=== PATIENT | female | born 1950 | race Caucasian/White ===

== ENCOUNTER 2023-07-29 06:05 | Inpatient (IN) ==
--- NOTE | 2023-05-20 11:35 | PAT Medication Instructions ---
Medication Instructions Date of Service May 20, 2023 Home Medications albuterol sulfate 90 mcg/actuation aerosol inhaler 2 puff inhalation BID PRN sob amlodipine 5 mg tablet 5 mg PO QAM atorvastatin 40 mg tablet 40 mg PO QAM cholecalciferol (vitamin D3) 50 mcg (2,000 unit) tablet (Vitamin D3) 50 mcg PO QAM cyanocobalamin (vitamin B-12) 1,000 mcg tablet (Vitamin B-12) 1,000 mcg PO Q OTHER DAY duloxetine 60 mg capsule,delayed release sprinkle 60 mg PO QAM ferrous sulfate 325 mg (65 mg iron) tablet,delayed release 325 mg PO QAM fluticasone propionate 50 mcg/actuation nasal spray,suspension 1 spray intranasal QAM hydrocodone 5 mg-acetaminophen 325 mg tablet 1 tab PO Q4H PRN Pain ibuprofen 600 mg tablet 600 mg PO Q6H PRN Pain levothyroxine 112 mcg tablet (Synthroid) 112 mcg PO UD magnesium 200 mg tablet 400 mg PO QAM metformin 500 mg tablet 500 mg PO BID Continue as directed levothyroxine 112 mcg tablet (Synthroid) 112 mcg PO UD ASK your surgeon for instructions ibuprofen 600 mg tablet 600 mg PO Q6H PRN Pain DO NOT take the morning of surgery cholecalciferol (vitamin D3) 50 mcg (2,000 unit) tablet (Vitamin D3) 50 mcg PO QAM cyanocobalamin (vitamin B-12) 1,000 mcg tablet (Vitamin B-12) 1,000 mcg PO Q OTHER DAY ferrous sulfate 325 mg (65 mg iron) tablet,delayed release 325 mg PO QAM magnesium 200 mg tablet 400 mg PO QAM metformin 500 mg tablet 500 mg PO BID Take morning of surgery With a small sip of water, OTHERWISE NOTHING TO EAT OR DRINK AFTER MIDNIGHT: albuterol sulfate 90 mcg/actuation aerosol inhaler 2 puff inhalation BID PRN sob (use if needed; please bring with you to hospital day of surgery if possible) amlodipine 5 mg tablet 5 mg PO QAM atorvastatin 40 mg tablet 40 mg PO QAM duloxetine 60 mg capsule,delayed release sprinkle 60 mg PO QAM fluticasone propionate 50 mcg/actuation nasal spray,suspension 1 spray intranasal QAM hydrocodone 5 mg-acetaminophen 325 mg tablet 1 tab PO Q4H PRN Pain (if needed) Take evening before surgery albuterol sulfate 90 mcg/actuation aerosol inhaler 2 puff inhalation BID PRN sob (if needed) hydrocodone 5 mg-acetaminophen 325 mg tablet 1 tab PO Q4H PRN Pain (if needed) metformin 500 mg tablet 500 mg PO BID Other Notes If you have any questions please call us at [phone] or [phone] or [phone] or [phone]
--- NOTE | 2023-05-26 12:29 | Anesthesiology Consultation ---
Date of Service May 26, 2023 Assessment & Plan (1) Encounter for pre-operative examination: - left chest discomfort radiating to left arm and back ongoing since 02/2023 attributed to neck by Dr. Hoffmann per patient. Denies change or worsening-states it is similar to right sided symptoms from neck pain which improved with steroid injections. - upcoming Dr. Mcdermott and PCP pre-operative evaluations ordered by surgeon. Optimization form and PAT testing to be faxed to cardiology. Chart Review Chart Review: Pending: Refer to Additional Notes / Consult section and Patient seen in Pre Admission Testing Teaching & Discussion Pre-Anesthesia Teaching/Discussion Notes: Instructed NPO after midnight before surgery, except medications with 15 cc of water. Medication instructions provided according to the PAT guidelines. History Surgery Operation Date: 06/13/23 07:45 Proposed Procedures p C5-C6, C6-C7 Anterior Cervical Discectomy and Fusion, Spinal Cord Monitoring - Marcos Hoffmann, DO Height/Weight Height: 5 ft 5 in Weight: 86.7 kg Allergies Allergy/AdvReac Type Severity Reaction Status Date / Time fexofenadine [From Obdulia] Allergy Rash Verified 05/20/23 10:35 Medications Home Medications Medication Instructions Recorded Confirmed Last Taken albuterol sulfate 90 mcg/actuation 2 puff inhalation BID PRN sob 05/20/23 05/20/23 Unknown aerosol inhaler amlodipine 5 mg tablet 5 mg PO QAM 05/20/23 05/20/23 Unknown atorvastatin 40 mg tablet 40 mg PO QAM 05/20/23 05/20/23 Unknown cholecalciferol (vitamin D3) 50 50 mcg PO QAM 05/20/23 05/20/23 Unknown mcg (2,000 unit) tablet (Vitamin D3) cyanocobalamin (vitamin B-12) 1,000 mcg PO Q OTHER DAY 05/20/23 05/20/23 Unknown 1,000 mcg tablet (Vitamin B-12) duloxetine 60 mg capsule,delayed 60 mg PO QAM 05/20/23 05/20/23 Unknown release sprinkle ferrous sulfate 325 mg (65 mg 325 mg PO QAM 05/20/23 05/20/23 Unknown iron) tablet,delayed release fluticasone propionate 50 1 spray intranasal QAM 05/20/23 05/20/23 Unknown mcg/actuation nasal spray,suspension hydrocodone 5 mg-acetaminophen 325 1 tab PO Q4H PRN Pain 05/20/23 05/20/23 Unknown mg tablet ibuprofen 600 mg tablet 600 mg PO Q6H PRN Pain 05/20/23 05/20/23 Unknown levothyroxine 112 mcg tablet 112 mcg PO UD 05/20/23 05/20/23 Unknown (Synthroid) magnesium 200 mg tablet 400 mg PO QAM 05/20/23 05/20/23 Unknown metformin 500 mg tablet 500 mg PO BID 05/20/23 05/20/23 Unknown Past Medical History Medical History (Updated 05/26/23 @ 12:37 by Malgorzata Alonso PA-C) 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 Mcdermott's office monitors. Last check 04/2022. "very small." Anxiety DM type 2 (diabetes mellitus, type 2) NIDDM GERD (gastroesophageal reflux disease) controlled, stable per pt Hearing deficit HLD (hyperlipidemia) HTN (hypertension) controlled, stable per pt Hypothyroidism Sleep apnea CPAP-compliant Spinal stenosis Wears hearing aid in both ears Patient denies h/o stroke, seizures, heart attack, heart failure, blood clots/DVTs or blood transfusions. Exercise / Class Metabolic Activity II 4-5 Yardwork/Stairs/Walk up hill (denies chest discomfort or shortness of b reath with 1 FOS) Past Surgical History Surgical History (Updated 05/26/23 @ 12:41 by Malgorzata Alonso PA-C) History of appendectomy History of bunionectomy small toes bilat History of cataract surgery History of colonoscopy History of esophagogastroduodenoscopy (EGD) History of laparoscopy adhesions History of shoulder surgery Rt History of surgery on right wrist History of thumb surgery Left History of total abdominal hysterectomy and bilateral salpingo-oophorectomy S/P excision of lipoma x2 S/P excision of neuroma pt unsure of location Past Anesthesia History No Hx of Anesthesia Complications and No Family Hx of Anesthesia Complications History of PONV No Hx of PONV and No Hx of Motion Sickness STOP BANG Total 5 Social History Smoking Status: Former smoker Do You Dip or Chew Tobacco: No Smoking End Date: 13 years ago Hx Alcohol Use: Yes alcohol intake frequency: a few times a month Hx Substance Use: Yes substance use type: does not use and marijuana (several times past few weeks- advised) Review of Systems Patient denies chest pain, shortness of breath, dyspnea on exertion, fever, chills, cough, wheezing, or palpitations. Physical Exam Vital Signs Vitals BP 117/83 P 92 TEMP 98.2 SP02 95% on RA RESP 17 Physical Patient resting comfortably in chair in no acute distress, alert and oriented, responding appropriately throughout visit Full cervical extension range of motion without pain TMD 3.5 finger breadths Mallampati Score 2 Dentition: several caps/crowns and two bridges, denies chipped or loose teeth, orimplants Lungs: normal respiratory effort. Good air movement, clear throughout to auscultation, no adventitious breath sounds Cardiac: regular rate and rhythm, no murmurs noted Carotid arteries: negative bruit bilat Lab Results Anesthesia Preop Results Results Anesthesia Widget: WBC 7.02 K/ul (4.8-10.8) 05/26/23 Hgb 13.7 g/dl (12.0-16.0) 05/26/23 Hct 42.4 % (37.0-47.0) 05/26/23 Plt 244 K/uL (130-400) 05/26/23 Na 142 mmol/L (136-145) 05/26/23 K 3.9 mmol/L (3.5-5.1) 05/26/23 Cl 103 mmol/L (98-107) 05/26/23 CO2 33 mmol/L (21-32) H 05/26/23 BUN 14 mg/dl (6-23) 05/26/23 Creat 0.90 mg/dl (0.6-1.2) 05/26/23 Glucose Level 93 mg/dl (70-99(Fasting)) 05/26/23 PT 10.7 Seconds (9.0-12.0) 05/26/23 PTT 26 Seconds (21-31) 05/26/23 INR 1.0 (0.9-1.1) 05/26/23 Urine Color Dark Yellow 05/26/23 Urine Appearance Clear (Clear) 05/26/23 Urine pH 5.5 (4.5-7.5) 05/26/23 Urine Specific Wing 1.020 (1.000-1.030) 05/26/23 Urine Protein Negative (Negative) 05/26/23 Urine Glucose (UA) Negative (Negative) 05/26/23 Urine Ketones Trace (Negative) H 05/26/23 Urine Blood Negative (Negative) 05/26/23 Urine Nitrite Negative (Negative) 05/26/23 Urine Bilirubin Negative (Negative) 05/26/23 Urine Urobilinogen Negative (Negative) 05/26/23 Urine Leukocyte Esterase 2+ (Negative) H 05/26/23 Urine WBC (Auto) 1-5 /hpf (0-5) 05/26/23 Urine RBC (Auto) 10-30 /hpf (0-4) H 05/26/23 Urine Hyaline Casts (Auto) 1-5 /lpf (0-5) 05/26/23 Urine Epithelial Cells (Auto) >30 /lpf (0-5) H 05/26/23 Urine Bacteria (Auto) Negative (Negative) 05/26/23 Blood Type A Positive 05/26/23 Antibody Screen NEGATIVE 05/26/23 Testing Electrocardiogram Date: 05/26/23 Sinus rhythm with premature atrial complexes, rate 80 bpm Left axis deviation Chest X-Ray Date: 05/26/23 No acute process.
[~2023-07-29 06:05] MED LIST: ACETAMINOPHEN 500 MG TAB PO SCH; CeleBREX 200 MG CAP PO SCH; GABAPENTIN 300 MG CAP PO SCH; LR 15ML/HR IV SCH; LR 60ML/HR IV SCH; ceFAZolin 2000MG 2,000 MG/15 ML SYR IV SCH
[2023-07-29] MEDS: LR 15ML/HR IV SCH (06:50)
[2023-07-29] MEDS: ACETAMINOPHEN 500 MG TAB PO SCH (06:52)
[2023-07-29] MEDS: GABAPENTIN 300 MG CAP PO SCH (06:53)
[2023-07-29] MEDS: CeleBREX 200 MG CAP PO SCH (06:53)
[2023-07-29] MEDS: LR 60ML/HR IV SCH (06:53)
[2023-07-29] MEDS ORDERED: LIDOCAINE 2% 2 ML VIAL/AMP(20MG/ML) INFIL ONE (07:00)
[2023-07-29] MEDS ORDERED: ROCURONIUM BROMIDE 10 MG/ML 5 ML VIAL IV ONE (07:00)
[2023-07-29] MEDS ORDERED: MIDAZOLAM HCL 1 MG/ML 2ML VIAL ONE (07:00)
[2023-07-29] MEDS ORDERED: ONDANSETRON INJ 2 MG/ML 2 ML VIAL ONE (07:00)
[2023-07-29] MEDS ORDERED: SUCCINYLCHOLINE CHLORIDE 20 MG/ML 10 ML VIAL IV ONE (07:00)
[2023-07-29] MEDS ORDERED: fentaNYL citrate PF 100 MCG/2 ML VIAL ONE (07:00)
[2023-07-29] MEDS ORDERED: SUCCINYLCHOLINE 100MG/5ML SYR IV ONE (07:00)
[2023-07-29] MEDS ORDERED: PROPOFOL IV EMULSION 10 MG/ML 20 ML VIAL IV ONE (07:00)
[2023-07-29] MEDS ORDERED: DexMEDEtomidine HCL IV 100 MCG/ML VIAL IV ONE (07:06)
[2023-07-29] MEDS ORDERED: ATROPINE SULFATE 0.1 MG/ML 10ML SYR IV PRN (07:19)
[2023-07-29] MEDS ORDERED: HYDROmorphone INJ 2 MG/ML SYR/VIAL IV PRN (07:19)
[2023-07-29] MEDS ORDERED: ePHEDrine sulfate 50 MG/ML AMP IV PRN (07:19)
[2023-07-29] MEDS ORDERED: PROMETHAZINE HCL 6.25 MG in SODIUM CHLORIDE 0.9% 50 ML IV PRN (07:19)
--- NOTE | 2023-07-29 07:41 | History & Physical Bridge Note ---
Date of Service July 29, 2023 History & Physical Bridge Note I have examined the patient, reviewed the History & Physical and in the interval since the performance of the History & Physical I have noted the following changes of clinical significance: no changes noted
--- NOTE | 2023-07-29 07:44 | History & Physical Report ---
Date of Service July 29, 2023 Assessment & Plan (1) Cervical stenosis of spinal canal: Plan: Anterior cervical discectomy and fusion C5-C7 History of Present Illness Chief Complaint: Neck and arm pain Primary Care Provider: Isabella Ponce This is a 73-year-old female presents chronic persistent neck pain Course of nonoperative care is here for surgical invention. Allergies Allergy/AdvReac Type Severity Reaction Status Date / Time fexofenadine [From Obdulia] Allergy Mild Rash Verified 07/29/23 06:38 Home Medications Medication Instructions Recorded Confirmed Type albuterol sulfate 90 mcg/actuation 2 puff inhalation BID PRN sob 05/20/23 07/29/23 History aerosol inhaler amlodipine 5 mg tablet 5 mg PO QAM 05/20/23 07/29/23 History atorvastatin 40 mg tablet 80 mg PO QAM 05/20/23 07/29/23 History cholecalciferol (vitamin D3) 50 125 mcg PO QAM 05/20/23 07/29/23 History mcg (2,000 unit) tablet (Vitamin D3) cyanocobalamin (vitamin B-12) 1,000 mcg PO Q OTHER DAY 05/20/23 07/29/23 History 1,000 mcg tablet (Vitamin B-12) duloxetine 60 mg capsule,delayed 60 mg PO QAM 05/20/23 07/29/23 History release sprinkle ferrous sulfate 325 mg (65 mg 325 mg PO Q OTHER DAY 05/20/23 07/29/23 History iron) tablet,delayed release fluticasone propionate 50 1 spray intranasal QAM PRN 05/20/23 07/29/23 History mcg/actuation nasal allergies spray,suspension hydrocodone 5 mg-acetaminophen 325 1 tab PO Q4H PRN Pain 05/20/23 07/29/23 History mg tablet ibuprofen 600 mg tablet 600 mg PO Q6H PRN Pain 05/20/23 07/29/23 History levothyroxine 112 mcg tablet 112 mcg PO UD 05/20/23 07/29/23 History (Synthroid) magnesium 200 mg tablet 400 mg PO QAM 05/20/23 07/29/23 History metformin 500 mg tablet 500 mg PO BID 05/20/23 07/29/23 History valacyclovir 500 mg tablet 500 mg PO DAILY PRN Cold Sores 07/24/23 07/29/23 History (Valtrex) Past Med/Surg History Medical History (Updated 07/29/23 @ 07:43 by Marcos Hoffmann, ) Spinal stenosis GERD (gastroesophageal reflux disease) controlled, stable per pt Hypothyroidism Wears hearing aid in both ears Hearing deficit Anxiety DM type 2 (diabetes mellitus, type 2) NIDDM HLD (hyperlipidemia) HTN (hypertension) controlled, stable per pt 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 Mcdermott's office monitors. Last check 04/2022. "very small." Sleep apnea CPAP-compliant Surgical History Hx of bilateral cataract extraction History of laparoscopy adhesions History of shoulder surgery Rt S/P excision of lipoma x2 History of surgery on right wrist History of thumb surgery Left History of appendectomy S/P excision of neuroma pt unsure of location History of bunionectomy small toes bilat History of total abdominal hysterectomy and bilateral salpingo-oophorectomy History of esophagogastroduodenoscopy (EGD) History of colonoscopy Social History Smoking Status: Former smoker Tobacco Type: Cigarettes Cigarettes Per Day: 10cigs / day; Smoking End Date: quit 13 years ago; Second Hand Exposure: No; Do You Dip or Chew Tobacco: No; Tobacco Cessation Education Requested by Patient: No Hx Alcohol Use: Yes Hx Substance Use: No Preferred Language: Lao Communication Ability: Effective Seasoning Sprayer Required: No Beliefs That Will Affect Care: None Current Living Situation: Family Other Information That Helps Us Care for You: No Feels Safe at Home: Yes Safety Concerns: Feels Safe At This Time Assistive Devices: CPAP and Hearing Aid - Bilateral Physical Exam Physical Exam: Patient is alert and oriented Heart regular in rhythm Lungs clear Results & Data Results & Data Vital Signs (Past 12 Hours) Vital Signs Temp Pulse Resp BP Pulse Ox O2 Del Method 07/29/23 06:35 36.8 C 84 20 147/85 H 95 Room Air
[2023-07-29] MEDS: ceFAZolin 2000MG 2,000 MG/15 ML SYR IV SCH ×2 (07:51→16:15)
[2023-07-29] MEDS ORDERED: SUGAMMADEX SODIUM 200 MG/2 ML VIAL IV ONE (08:49)
[2023-07-29] MEDS: ceFAZolin 330 MG/ML 1 GM VIAL ONE (09:15)
[2023-07-29] MEDS: FLOSEAL HEMOSTATIC MATRIX 10ML TOP ONE (09:16)
--- NOTE | 2023-07-29 09:27 | Operative Report ---
Post Operative Report Pre & Post Diagnosis Operation Date: 07/29/23 07:45 Pre-Op Diagnosis: Cervical Disc Herniation, Cervical Region Radiculopathy Post-Op Diagnosis: Cervical Disc Herniation, Cervical Region Radiculopathy I identified the patient and participated in the time-out.: Yes Procedure Operation Date: 07/29/23 07:45 Actual Procedures 1. Anterior cervical discectomy with bilateral foraminotomies C5-C6 C6-C7. #2 anterior cervical arthrodesis C5-C6 C6-C7. #3 placement of Spira 8 mm cage C5- C6 10 mm cage at C6-C7 both filled with I factor. #4 application of K2 M plate and screws C5-C7. Surgeon Marcos Hoffmann, [employer] D[employer] Superintendent Evelia Brown Estimated Blood Loss 10 Findings Consistent with Post-Op Diagnosis Specimens None Indications This is a 73-year-old female presents problems diagnosis of failed course of nonoperative care is here for surgical invention. Description of Procedure Patient met with identified informed consent obtained. 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 All bony prominences well-padded eyes inspected to ensure no external pressure placed upon the. This point the anterior cervical spine was prepped and draped in a sterile fashion. The assistance of fluoroscop y identified the C6 vertebral body and a transverse incision was placed along the right anterior aspect of the cervical spine overlying this region. Blunt dissection with the assistance of bipolar electrocautery to form down to expose the anterior cervical spine from C5-C7. Self-retaining retractors placed. Then performed a complete discectomy of C5-C6 out to the uncal vertebral joint bilaterally including removal of all posterior annular fibers longitudinal ligament bilateral foraminotomies performed. Endplates burred to subcortical bleeding bone and a 8 mm Spira cage with I factor tapped in position. I then proceeded to C6-C7. Again complete discectomy performed out to the uncovertebral's bilaterally. [place] distracting pins again utilized. Removed all posterior annular fibers longitudinal ligament bilateral foraminotomies were performed. Endplates burred to subcortical bleeding bone and a 10 mm Spira cage filled with I factor tapped in position. Distracting apparatus was removed all anterior osteophytes burred to a smooth cortical surface and a K2 M plate and screws applied with the assistance of fluoroscopy. The incision was then jhonathan irrigated explored to ensure no damage to surrounding structures remaining bleeding. 10 round CHANO drain inserted. The incision was then closed with 2 Vicryl in a fashion of 4 Monocryl for final closure. Steri-Strips sterile dress ing placed. Patient awakened taken to PACU in stable condition. Please note spinal cord monitoring utilized at the procedure no changes noted. Lastly Evelia Brown was present at the entire procedure and on the patient positioning complex portion of the surgery and final skin closure. I attest to the content of the Intraoperative Record and any orders documented therein. Any exceptions are noted below.
[2023-07-29] MEDS ORDERED: ONDANSETRON 4 MG OD TAB PO PRN (11:20)
[2023-07-29] MEDS ORDERED: ONDANSETRON INJ 2 MG/ML 2 ML VIAL IV PRN (11:20)
[2023-07-29] MEDS ORDERED: RACEPINEPHRINE 2.25% NEBU SOLN 0.5 ML VIAL INH PRN (11:20)
[2023-07-29] MEDS ORDERED: LORazepam 0.5 MG in SYRINGE 0.25 ML IV PRN (11:20)
[2023-07-29] MEDS ORDERED: FAMOTIDINE 20 MG TAB PO PRN (11:20)
[2023-07-29] MEDS ORDERED: bisacodyL 10 MG SUPP PR PRN (11:20)
[2023-07-29] MEDS ORDERED: SOD PHOSPHATE/SOD BIPHOSPHATE ENEMA 132 ML BTL PR PRN (11:20)
[2023-07-29] MEDS ORDERED: LORazepam 0.5 MG TAB PO PRN (11:20)
[2023-07-29] MEDS ORDERED: hydrOXYzine HCl 25 MG TAB PO PRN (11:20)
[2023-07-29] MEDS ORDERED: MAGNESIUM HYDROXIDE SUSP 30 ML UDC PO PRN (11:20)
[2023-07-29] MEDS ORDERED: diphenhydrAMINE Capsule 25 MG CAP PO PRN (11:20)
[2023-07-29] MEDS ORDERED: PROMETHAZINE HCL 12.5 MG in SODIUM CHLORIDE 0.9% 50 ML IV PRN (11:20)
[2023-07-29] MEDS ORDERED: NALOXONE HCL 0.4 MG/1 ML VIAL/CARP IV PRN (11:20)
[2023-07-29] MEDS ORDERED: ACETAMINOPHEN 1,000 MG/100 ML VIAL IV PRN (11:20)
[2023-07-29] MEDS ORDERED: ACETAMINOPHEN 500 MG TAB PO PRN (11:20)
[2023-07-29] MEDS ORDERED: FLUTICASONE PROPIONATE NA SPR 16 GM BTL PRN (11:20)
[2023-07-29] MEDS ORDERED: DO NOT ADMINISTER PNEUMOCOCCAL VACCINE PRN (11:20)
[2023-07-29] MEDS ORDERED: DO NOT ADMINISTER FLU VACCINE PRN (11:20)
[2023-07-29] MEDS ORDERED: traMADol HCL 50 MG TABLET PO PRN (11:20)
[2023-07-29] MEDS ORDERED: METOCLOPRAMIDE HCL INJ 5 MG/ML 2 ML VIAL IV PRN (11:20)
[2023-07-29] MEDS ORDERED: HYDROmorphone INJ 1 MG/ML SYRINGE IV PRN (11:20)
[2023-07-29] MEDS ORDERED: dexAMETHasone 8 MG in SYRINGE 0 ML IV PRN (11:20)
[2023-07-29] MEDS ORDERED: ALUMINUM/MAGNESIUM SUSP 30 ML UDC PO PRN (11:20)
[2023-07-29] MEDS ORDERED: HYDROmorphone INJ 0.5 MG/0.5 ML SYR IV PRN (11:20)
--- NOTE | 2023-07-29 11:37 | Fluoroscopy Report ---
FL cervical 2-3V CLINICAL HISTORY: C5-C7 ACDF TECHNIQUE: 3 views were obtained with the C-arm in the OR with the above procedure. Total fluoroscopy time was 10.5 seconds. Radiation dose was 4.25 mGy. Comparison: None available at the time of this dictation. FINDINGS/IMPRESSION: Intraoperative images were obtained of ACDF spanning C5-C7. Please correlate with intraoperative fluoroscopy and operative report. ACT 112: Negative or not required by law. Electronically signed by: Aditya Salinas M.D. 07/29/2023 11:36 AM
[2023-07-29] MEDS: LACTATED RINGER'S 1,000 ML IV SCH (11:45)
--- NOTE | 2023-07-29 12:21 | Anesthesiology Progress Note ---
Date of Service July 29, 2023 Anesthesia Post Procedure Vital Signs Vital Signs: Temp Pulse Pulse Resp BP Pulse Ox Pulse Ox 07/29/23 12:19 36.6 C 77 18 154/81 H 94 07/29/23 11:47 36.7 C 75 15 148/81 H 94 07/29/23 11:20 94 07/29/23 11:20 07/29/23 11:20 36.7 C 77 16 165/74 H 92 07/29/23 10:55 37 C 75 20 141/84 H 94 07/29/23 10:45 71 16 141/83 H 97 07/29/23 10:35 71 16 146/88 H 98 07/29/23 10:25 73 18 145/84 H 97 07/29/23 10:15 79 16 150/86 H 96 07/29/23 10:05 70 16 146/86 H 100 07/29/23 09:55 68 16 142/86 H 99 07/29/23 09:48 36.8 C 71 16 137/86 98 07/29/23 06:35 36.8 C 84 20 147/85 H 95 O2 Del Method O2 Del Method O2 Flow Rate 07/29/23 12:19 Nasal Cannula 3 07/29/23 11:47 Nasal Cannula 3 07/29/23 11:20 Nasal Cannula 07/29/23 11:20 Nasal Cannula 3 07/29/23 11:20 Nasal Cannula 3 07/29/23 10:55 Nasal Cannula 3 07/29/23 10:45 Nasal Cannula 3 07/29/23 10:35 Nasal Cannula 3 07/29/23 10:25 Oxymask 4 07/29/23 10:15 Oxymask 4 07/29/23 10:05 Oxymask 6 07/29/23 09:55 Oxymask 6 07/29/23 09:48 Oxymask 6 07/29/23 06:35 Room Air Transfer of Care Handoff Completed per policy Notes Mental Status: alert / awake / arousable and participated in evaluation Nausea / Vomiting: adequately controlled Pain: adequately controlled Airway Patency, RR, SpO2: stable & adequate BP & HR: stable & adequate Hydration State: stable & adequate Anesthetic Complications: no major complications apparent and Pt Satisfied with anesthetic care
--- NOTE | 2023-07-29 12:26 | Hospitalist Consultation ---
Date of Consultation July 29, 2023 Assessment & Plan (1) S/P spinal surgery: (2) Cervical stenosis of spinal canal: This is a 73yo F with a PMH of HTN, HLD, DM II, hypothyroidism and other medical problems listed below who is POD#0 s/p ACDF C5-C7 by Dr. Hoffmann on 07/29/23. POD#0 s/p ACDF C5-C7 by Dr. Hoffmann on 07/29/23 Per ortho for pain control, wound care, anticoagulation and activities Monitor H&H (EBL 10ml, pre-op hgb 13.4), continue incentive spirometry, PT/OT when appropriate (3) DM type 2 (diabetes mellitus, type 2): Need updated alc per patient, will add for AM Hold home agents SSI while in-patient BSG AC HS (4) HTN (hypertension): Normotensive. Continue home amlodipine (5) Depression: (6) Anxiety: Chronic, stable. Continue duloxetine (7) HLD (hyperlipidemia): Continue statin, following with cards (8) Aortic ectasia, thoracic: HANH with normal aortic root, [facility] cardiology following (9) Hypothyroidism: Chronic, stable. Continue levothyroxine (10) GERD (gastroesophageal reflux disease): Chronic, stable. Continue PPI (11) Sleep apnea: CPAP HS DVT Ppx: SCDs PCP: [facility] Dispo: Per primary service Patient seen in collaboration with Dr. Walters. Please see addendum. I spent a total of 60 minutes coordinating, documenting, and providing care for this patient excluding time spent in the performance of separately billed services. Supervising Physician Co-Signing Physician Notes Pt was seen and examined by myself, Kaitlyn Walters MD on the day of service. Care was coordinated with Kaci Milton PA-C. 73yoF s/p anterior cervical discectomy with bilateral foraminotomies, POD #0. Pt seen post op while laying in bed, collar in place. Denied acute concerns at that time. States pain well controlled, denied SOB, chest pain, N/V. RRR, No increased effort of breathing. Monitor H/H postop. DVT prophylaxis, PT/OT per primary team. Otherwise as above. I spent a total [id number] coordinating, documenting, and providing care for this patient excluding time spent in the performance of separately billed services History of Present Illness Reason for Consultation: post op med mgmt Attending Physician: Marcos Hoffmann DO History of Present Illness This is a 73yo F with a PMH of HTN, HLD, DM II, hypothyroidism and other medical problems listed below who is POD#0 s/p ACDF C5-C7 by Dr. Hoffmann on 07/29/23. Seen and examined postoperatively and feeling well. Denies any pain or paresthesias in upper extremities. No postop nausea. No chest pain or shortness of breath. Urinating without issue postoperatively. No fever, chills, lightheadedness, headache, vomiting, abdominal pain, dysuria, diarrhea or constipation. Receives primary care through [facility] in [place]. Diabetes is well-controlled in general with last A1c of 6 but unsure if it has been done in the past 6 months. Allergies Allergy/AdvReac Type Severity Reaction Status Date / Time fexofenadine [From Obdulia] Allergy Mild Rash Verified 07/29/23 06:38 Home Medications Medication Instructions Recorded Confirmed Type albuterol sulfate 90 mcg/actuation 2 puff inhalation BID PRN sob 05/20/23 07/29/23 History aerosol inhaler amlodipine 5 mg tablet 5 mg PO QAM 05/20/23 07/29/23 History atorvastatin 40 mg tablet 80 mg PO QAM 05/20/23 07/29/23 History cholecalciferol (vitamin D3) 50 125 mcg PO QAM 05/20/23 07/29/23 History mcg (2,000 unit) tablet (Vitamin D3) cyanocobalamin (vitamin B-12) 1,000 mcg PO Q OTHER DAY 05/20/23 07/29/23 History 1,000 mcg tablet (Vitamin B-12) duloxetine 60 mg capsule,delayed 60 mg PO QAM 05/20/23 07/29/23 History release sprinkle ferrous sulfate 325 mg (65 mg 325 mg PO Q OTHER DAY 05/20/23 07/29/23 History iron) tablet,delayed release fluticasone propionate 50 1 spray intranasal QAM PRN 05/20/23 07/29/23 History mcg/actuation nasal allergies spray,suspension hydrocodone 5 mg-acetaminophen 325 1 tab PO Q4H PRN Pain 05/20/23 07/29/23 History mg tablet ibuprofen 600 mg tablet 600 mg PO Q6H PRN Pain 05/20/23 07/29/23 History levothyroxine 112 mcg tablet 112 mcg PO UD 05/20/23 07/29/23 History (Synthroid) magnesium 200 mg tablet 400 mg PO QAM 05/20/23 07/29/23 History metformin 500 mg tablet 500 mg PO BID 05/20/23 07/29/23 History valacyclovir 500 mg tablet 500 mg PO DAILY PRN Cold Sores 07/24/23 07/29/23 History (Valtrex) Patient History Medical History Aortic ectasia, thoracic Depression Spinal stenosis GERD (gastroesophageal reflux disease) controlled, stable per pt Hypothyroidism Wears hearing aid in both ears Hearing deficit Anxiety DM type 2 (diabetes mellitus, type 2) NIDDM HLD (hyperlipidemia) HTN (hypertension) controlled, stable per pt 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 Mcdermott's office monitors. Last check 04/2022. "very small." Sleep apnea CPAP-compliant Surgical History Hx of bilateral cataract extraction History of laparoscopy adhesions History of shoulder surgery Rt S/P excision of lipoma x2 History of surgery on right wrist History of thumb surgery Left History of appendectomy S/P excision of neuroma pt unsure of location History of bunionectomy small toes bilat History of total abdominal hysterectomy and bilateral salpingo-oophorectomy History of esophagogastroduodenoscopy (EGD) History of colonoscopy Social History Smoking Status: Former smoker Tobacco Type: Cigarettes Cigarettes Per Day: 10cigs / day; Smoking End Date: quit 13 years ago; Second Hand Exposure: No; Do You Dip or Chew Tobacco: No; Tobacco Cessation Education Requested by Patient: No Hx Alcohol Use: Yes Hx Substance Use: No Preferred Language: Setswana Communication Ability: Effective Melter Clerk Required: No Beliefs That Will Affect Care: None Current Living Situation: Family Other Information That Helps Us Care for You: No Feels Safe at Home: Yes Safety Concerns: Feels Safe At This Time Assistive Devices: CPAP and Hearing Aid - Bilateral Review of Systems Review of Systems: At least ten systems reviewed and negative except as noted in the HPI. Physical Exam Physical Exam: Gen: WD/WN, NAD, laying in bed with c collar in place, A&Ox3 HEENT: Normocephalic, atraumatic, conjunctivae moist, sclerae anicteric, mucous membranes moist Neck: c collar in place, CHANO drain visualized, anterior cervical dressing c/d/i Lung: Clear to Auscultation bilaterally Heart: Regular rate, regular rhythm Abdomen: Soft, NT, ND +BS x 4 Extremities: no edema Skin: Warm, no rash Results & Data Results & Data Vital Signs (Past 12 Hours) Vital Signs Temp Pulse Pulse Resp BP Pulse Ox Pulse Ox 07/29/23 12:19 36.6 C 77 18 154/81 H 94 07/29/23 11:47 36.7 C 75 15 148/81 H 94 07/29/23 11:20 94 07/29/23 11:20 07/29/23 11:20 36.7 C 77 16 165/74 H 92 07/29/23 10:55 37 C 75 20 141/84 H 94 07/29/23 10:45 71 16 141/83 H 97 07/29/23 10:35 71 16 146/88 H 98 07/29/23 10:25 73 18 145/84 H 97 07/29/23 10:15 79 16 150/86 H 96 07/29/23 10:05 70 16 146/86 H 100 07/29/23 09:55 68 16 142/86 H 99 07/29/23 09:48 36.8 C 71 16 137/86 98 07/29/23 06:35 36.8 C 84 20 147/85 H 95 O2 Del Method O2 Del Method O2 Flow Rate 07/29/23 12:19 Nasal Cannula 3 07/29/23 11:47 Nasal Cannula 3 07/29/23 11:20 Nasal Cannula 07/29/23 11:20 Nasal Cannula 3 07/29/23 11:20 Nasal Cannula 3 07/29/23 10:55 Nasal Cannula 3 07/29/23 10:45 Nasal Cannula 3 07/29/23 10:35 Nasal Cannula 3 07/29/23 10:25 Oxymask 4 07/29/23 10:15 Oxymask 4 07/29/23 10:05 Oxymask 6 07/29/23 09:55 Oxymask 6 07/29/23 09:48 Oxymask 6 07/29/23 06:35 Room Air Laboratory Results Pre-op hgb 13.4
[2023-07-29] MEDS ORDERED: DEXTROSE 50% 50 ML SYRINGE IV PRN (14:08)
[2023-07-29] MEDS ORDERED: CARBOHYDRATES FOR HYPOGLYCEMIA PO PRN (14:08)
[2023-07-29] MEDS ORDERED: GLUCOSE 10 TAB/TUBE PO PRN (14:08)
[2023-07-29] MEDS ORDERED: PHARMACY GLYCEMIC MGMT CONSULT PRN (14:08)
[2023-07-29] MEDS ORDERED: GLUCOSE 40% GEL 15 GM TUBE PO PRN (14:08)
[2023-07-29] MEDS ORDERED: GLUCAGON FOR INJ 1 MG VIAL SQ PRN (14:08)
--- NOTE | 2023-07-29 14:23 | Pharmacy Report ---
Pharmacy Glycemic Short Note 2 - Date of Service July 29, 2023 - Glycemic Short BSG Results (Last 24 hours): 07/29/23 07/29/23 06:37 09:50 POC Glucose 111 H 120 H OUTPATIENT ANTIDIABETIC REGIMEN: * metformin 500 mg bid ASSESSMENT: * 73 year old now s/p surgery, POD 0 - pharmacy consulted to assist with glycemic management. Patient will be receiving steroids postop starting tomorrow AM. Anticipate steroid induced hyperglycemia. * No steroids given intraoperatively today - will utilize weight based stress 2 novolog SSI for today. Plan to tighten novolog tomorrow AM with ongoing steroids and likely will add on 0.2 units/kg basal insulin to help with covering dexamethasone effects. PLAN FOR INPATIENT GLYCEMIC CONTROL: * Hold outpatient oral diabetes medications * Basal insulin * Lantus - hold today * Likely start tomorrow AM 4/3 with IV dexamethasone * Bolus insulin * NovoLog per scale ACHS or Q6hrs while NPO * Goal Range: Low 110 mg/dL - High 140 mg/dL * Correction Factor: 25 mg/dL/unit * Nutritional / Prandial insulin per carb ratio of 1 unit per 9 grams CHO consumed
[2023-07-29] MEDS: INSULIN ASPART PER UNIT CHARGE SC SCH (17:06)
[2023-07-29] MEDS: DOCUSATE SODIUM/SENNA 50/8.6MG TAB PO SCH (20:49)
[2023-07-30] MEDS: HYDROCODONE/ACETAMOPHEN 5/325MG TAB PO PRN (02:50)
[2023-07-30] MEDS: LEVOTHYROXINE SODIUM 112 MCG TABLET PO SCH (05:32)
[2023-07-30] MEDS: POLYETHYLENE (MIRALAX) 17 GM PACK PO SCH (05:32)
[2023-07-30 06:21] LABS: Hematocrit (blood only) 34.1 % (37.0-47.0); Hemoglobin 11.4 g/dl (12.0-16.0); Mean Corpuscular Hemoglobin 28.6 pg (25.0-34.0); Mean Corpuscular Hgb Conc 33.4 g/dL (32.0-36.0); Mean Corpuscular Volume 85.5 fL (80.0-100.0); Mean Platelet Volume 10.7 fL (9.4-12.4); Platelet Count 204 K/uL (130-400); RDW Standard Deviation 40.2 fL (36.4-46.3); Red Blood Count 3.99 M/uL (4.20-5.40); White Blood Count 8.89 K/ul (4.8-10.8)
[2023-07-30 06:31] LABS: BUN Creatinine Ratio 19.5 (10-20); Calcium 8.5 mg/dl (8.6-10.3); Creatinine Clr Calc Pharmacy 68.9 ml/min; Est GFR (African American) 83.4 ml/min; Potassium 3.7 mmol/L (3.5-5.1)
[2023-07-30 07:28] LABS: Estimated Average Glucose 128 mg/dl; Hemoglobin A1C 6.1 % (4.5-5.6)
[2023-07-30] MEDS: LANTUS PER UNIT CHARGE SC SCH (08:26)
[2023-07-30] MEDS: dexAMETHasone 6 MG in SYRINGE 0 ML IV SCH (08:30)
[2023-07-30] MEDS: CHOLECALCIFEROL 125 MCG (5,000 UNITS) TAB PO SCH (08:37)
[2023-07-30] MEDS: amLODIPine BESYLATE 5 MG TAB PO SCH (08:38)
[2023-07-30] MEDS: FERROUS SULFATE 325 MG TAB PO SCH (08:38)
[2023-07-30] MEDS: CYANOCOBALAMIN (B-12) 500 MCG TABLET PO SCH (08:38)
[2023-07-30] MEDS: ATORVASTATIN 40 MG TAB PO SCH (08:39)
[2023-07-30] MEDS: MAGNESIUM OXIDE 400 MG TAB PO SCH (08:39)
[2023-07-30] MEDS: DULoxetine HCL 60 MG CAP PO SCH (08:39)
--- NOTE | 2023-07-30 09:30 | Discharge Summary ---
Date of Service July 30, 2023 Admission HPI Per Admitting Provider This is a 73-year-old female presents chronic persistent neck pain Course of nonoperative care is here for surgical invention. Principal Diagnosis Cervical spinal stenosis with radiculopathy Discharge Data Allergies Allergy/AdvReac Type Severity Reaction Status Date / Time fexofenadine [From Obdulia] Allergy Mild Rash Verified 07/29/23 06:38 Consultations 07/29/23 11:20 Consult Hospitalist Routine Procedures Performed Operation Date: 07/29/23 07:45 Actual Procedures p C5-C7 Anterior Cervical Discectomy Fusion, Spinal Cord Monitoring(Not Applicable) - Marcos Hoffmann DO Ordered Studies 07/29/23 [place] cervical 2-3V Routine Hospital Course (1) Cervical stenosis of spinal canal: Patient underwent anterior cervical discectomy with fusion tolerated as well as taken to orthopedic for postop labor postoperatively day #1 she was swallowing well no hoarseness. Arm symptoms markedly improved. Excellent strength testing. CHANO drain decreased probably. Subsidy discharged home. Discharge orders instructions from the chart for further review. Total Time Total Time Spent Total Time Spent (In Minutes): 20 minutes Discharge Plan Discharge Items Patient Disposition: Home - Self-Care Reason For Visit: Cervical Disc Herniation, Cervical Region Radiculo Discharge Diagnosis: Lumbar spinal stenosis with radiculopathy Activity: As commented below Non-emergency contact: Primary Care Provider Call non-emergency contact if: you have any medication questions Follow-up/Referrals: Isabella Ponce D.O. [Primary Care Provider] - Diet: Regular Addtl Attending Provider Instructions: ACTIVITY RECOMMENDATIONS: SELF CARE INSTRUCTIONS AFTER CERVICAL FUSIONS 1. No smoking. Smoking drastically decreases the chance of a solid fusion. 2. No bending, lifting more than 5 pounds, or twisting (roll like a log when turning in bed). 3. You may shower 3 days after surgery. Thoroughly dry wound. Do not soak in the tub. 4. Cervical collar: Must be worn at all times including sleeping. You may remove the brace only to bath, eat and if you are sitting in a recliner. 5. Please walk as much as you can for exercise. Gradually increase the distance that you walk as your endurance increases. SPECIAL CARE INSTRUCTIONS: VERY IMPORTANT TO READ AND REVIEW A. Do not take any anti-inflammatory medications (i.e. Indocin, Advil, Aspirin, Naprosyn, Aleve, Motrin, etc.) as these may inhibit the chance of a solid fusion. Tylenol is okay to take. B. Your surgical incision has been closed with a cosmetic suture under the skin that will dissolve in about 6 weeks. In 14 days, you can use a pair of clean scissors and cut the suture that is left outside of the skin at the ends of your incision. C. Complications are uncommon, but please contact us if you have any signs or symptoms of: 1. wound infection (fever higher than 102.5 degrees F, redness, separation of wound, drainage, or increasing pain from the incision) 2. blood clots in legs (pain, swelling, redness and warmth in legs) 3. urinary tract infection (fever higher than 102.5 degrees, burning upon urination or increased frequency of urination) 4. nerve problems (inability to walk on your toes or heels, numbness, loss of bowel or bladder control) 5. any other symptoms that concern you. D. Please call the office at if you have any concerns or questions about your operation or recovery. MANAGING PAIN AFTER SPINAL SURGERY 1. Narcotic medication is intended for short-term use and will be provided for surgical pain. Surgical pain usually lasts for a period of 4-6 weeks. Narcotic medication includes Percocet, Vicodin, Darvocet, Tylenol #3 or Lortab. 2. Longer-term pain is more appropriately treated with non-narcotic medication such as Tylenol ES. 3. Muscle spasm is not appropriately treated with narcotics. Muscle relaxers such as Soma, Flexeril or Skelaxin can be used along with Tylenol ES. 4. Remember that we all live with some "aches and pains". This is not unusual or uncommon after an injury or as we get older. 5. We will provide appropriate medication within the normal guidelines of their prescribed use. We will also be very cautious and aware of potential abuse and extended duration of patients' medication needs. 6. Please allow 2-3 days to process refills. Prescriptions will not be mailed but must be picked up at the office. FOLLOW UP VISIT: Keep your scheduled follow-up appointment. Any questions, please call the office at . Pending Studies at Discharge: No Stand-Alone Forms: [facility], Smoking Cessation Medications and DC Order Prescriptions: New tramadol 50 mg tablet 50 mg PO Q6H PRN (Reason: pain, moderate) Qty: 30 0RF oxycodone 5 mg tablet 5 mg PO Q6H PRN (Reason: pain) Qty: 20 0RF Continued atorvastatin 40 mg Tablet 80 mg PO QAM metformin 500 mg Tablet 500 mg PO BID hydrocodone-acetaminophen 5-325 mg Tablet 1 tab PO Q4H PRN (Reason: Pain) cyanocobalamin (vitamin B-12) [Vitamin B-12] 1,000 mcg Tablet 1,000 mcg PO Q OTHER DAY amlodipine 5 mg Tablet 5 mg PO QAM ibuprofen 600 mg Tablet 600 mg PO Q6H PRN (Reason: Pain) albuterol sulfate 90 mcg/actuation Hfa Aerosol Inhaler 2 puff INHALATION BID PRN (Reason: sob) ferrous sulfate 325 mg (65 mg iron) Tablet,Delayed Release (Dr/Ec) 325 mg PO Q OTHER DAY fluticasone propionate 50 mcg/actuation [place],Suspension 1 spray INTRANASAL QAM PRN (Reason: allergies) Rx Instructions: administer into each nostril levothyroxine [Synthroid] 112 mcg Tablet 112 mcg PO UD magnesium 200 mg Tablet 400 mg PO QAM cholecalciferol (vitamin D3) [Vitamin D3] 50 mcg (2,000 unit) Tablet 125 mcg PO QAM duloxetine 60 mg Capsule, Delayed Rel Sprinkle 60 mg PO QAM valacyclovir [Valtrex] 500 mg Tablet 500 mg PO DAILY PRN (Reason: Cold Sores) Discharge Orders: Discharge Order (Routine); Ordered 07/30/23 Ordered By: Marcos Bauman/Other Patient Handouts: Managing Type 2 Diabetes Admission Data Admit Date/Time: 07/29/23 09:31 Attending Provider: Marcos Hoffmann Admit Provider: Marcos Hoffmann Primary Care Provider: Isabella Ponce. Other Providers: Kaitlyn Walters; Madi Epperson
--- NOTE | 2023-07-30 10:46 | Hospitalist Progress Note ---
Date of Service July 30, 2023 Assessment & Plan (1) S/P spinal surgery: (2) Cervical stenosis of spinal canal: Plan: This is a 73yo F with a PMH of HTN, HLD, DM II, hypothyroidism and other medical problems listed below who is POD#1 s/p ACDF C5-C7 by Dr. Hoffmann on 07/29/23. POD#1 s/p ACDF C5-C7 by Dr. Hoffmann on 07/29/23 Per ortho for pain control, wound care, anticoagulation and activities Monitor H&H (EBL 10ml, pre-op hgb 13.4), continue incentive spirometry, PT/OT when appropriate Acute blood loss anemia, expected in setting of surgical blood loss as well as dilutional component Preop hemoglobin 13.4, postop day #1 hemoglobin 11.4 No indication for transfusion (3) DM type 2 (diabetes mellitus, type 2): Plan: A1c is 6.1 Well-controlled, resume oral metformin at discharge (4) HTN (hypertension): Plan: Normotensive. Continue home amlodipine Blood pressure is stable this morning, 115/70 (5) Depression: (6) Anxiety: Plan: Chronic, stable. Continue duloxetine (7) HLD (hyperlipidemia): Plan: Continue statin, following with cards (8) Aortic ectasia, thoracic: Plan: HANH with normal aortic root, [facility] cardiology following (9) Hypothyroidism: Plan: Chronic, stable. Continue levothyroxine (10) GERD (gastroesophageal reflux disease): Plan: Chronic, stable. Continue PPI (11) Sleep apnea: Plan: CPAP HS DVT Ppx: SCDs PCP: [facility] [place] Dispo: Discharge to home today Patient seen in collaboration with Dr. Epperson. Please see addendum. I spent a total of 45 minutes coordinating, documenting, and providing care for this patient excluding time spent in the performance of separately billed services. Admission and Anticipated Discharge Date Admission Date: July 29, 2023 Supervising Physician Co-Signing Physician Notes I personally reviewed the chart but unable to perform physical exam prior to patient's discharge today. Agree with management as above. Subjective Patient was seen and examined in room 314. Follow-up cervical surgery. She is sitting up in bedside chair and offers no acute complaints. She is tolerating diet denies any dysphagia. She denies fever, chills, sweats, lightheadedness, dizziness, chest pain, shortness breath, nausea or vomiting. She is ambulating without difficulty. She is passing gas and moving bowels. Review of Systems Review of Systems: All systems reviewed & are unremarkable except as noted in HPI & below Physical Exam Physical Exam: Gen: WD/WN, NAD, A&O x3 HEENT: Normocephalic, atraumatic, conjunctivae moist, sclerae anicteric, mucous membranes moist. Neck: Cervical collar in place, dressing CDI, CHANO drain with serosanguineous drainage Lung: Clear to Auscultation bilaterally, no wheezes/rales/rhonchi Heart: Regular rate, regular rhythm, no murmurs, rubs, or gallops Abdomen: Soft, NT, ND +BS x 4 Extremities: No edema Skin: Warm, no rash, negative turgor. Results & Data Results & Data Vital Signs (Past 12 Hours) Vital Signs Temp Pulse Pulse Resp BP BP Pulse Ox 07/30/23 10:36 81 14 96 07/30/23 09:50 36.9 C 63 16 115/70 97 07/30/23 07:23 92 H 16 95 07/30/23 07:09 36.6 C 90 16 146/79 H 95 07/30/23 06:20 36.7 C 79 16 135/73 94 07/30/23 04:20 36.5 C 86 16 142/78 H 98 07/30/23 02:22 86 16 98 07/30/23 02:20 36.8 C 83 16 138/75 98 07/30/23 00:17 36.6 C 65 14 136/81 98 O2 Del Method O2 Flow Rate 07/30/23 10:36 Room Air 07/30/23 09:50 Room Air 07/30/23 07:23 Room Air 07/30/23 07:09 Room Air 07/30/23 06:20 Room Air 07/30/23 04:20 Nasal Cannula 2 07/30/23 02:22 Nasal Cannula 2 07/30/23 02:20 Nasal Cannula 2 07/30/23 00:17 Nasal Cannula 2 Laboratory Results Short CBC 07/30/23 Range/Units 05:25 WBC 8.89 (4.8-10.8) K/ul Hgb 11.4 L (12.0-16.0) g/dl Hct 34.1 L (37.0-47.0) % Plt Count 204 (130-400) K/uL BMP 07/30/23 05:25 Sodium 140 Potassium 3.7 Chloride 105 Carbon Dioxide 27 BUN 16 Creatinine 0.82 Glucose 126 H Calcium 8.5 L Medications Administered Current Inpatient Medications Acetaminophen (Acetaminophen 500 Mg Tab) 1,000 mg PO Q8H PRN PRN Reason: MILD Pain Scale 1,2,3 & Pre PT Stop: 08/28/23 11:19 Hydrocodone Bitart/Acetaminophen (Hydrocodone/Acetamophen 5/325mg Tab) 1 - 2 tab PO Q4H PRN PRN Reason: Pain & Pre PT Stop: 08/12/23 11:19 Last Admin: 07/30/23 02:50 Dose: 2 tab Al Hydrox/Mg Hydrox/Simethicone (Aluminum/Magnesium Susp 30 Ml Udc) 30 ml PO Q6H PRN PRN Reason: Dyspepsia Stop: 08/28/23 11:19 Amlodipine Besylate (Amlodipine Besylate 5 Mg Tab) 5 mg PO QAM VOLODYMYR Stop: 08/29/23 08:59 Last Admin: 07/30/23 08:38 Dose: 5 mg Atorvastatin Calcium (Atorvastatin 40 Mg Tab) 80 mg PO QAM [facility] Stop: 08/29/23 08:59 Last Admin: 07/30/23 08:39 Dose: 80 mg Bisacodyl (Bisacodyl 10 Mg Supp) 10 mg DC DAILY PRN PRN Reason: Constipation Stop: 08/28/23 11:19 Cyanocobalamin (Cyanocobalamin (B-12) 500 Mcg Tablet) 1,000 mcg PO Q2D@0900 VOLODYMYR Stop: 08/29/23 08:59 Last Admin: 07/30/23 08:38 Dose: 1,000 mcg Dextrose (Dextrose 50% 50 Ml Syringe) 25 - 50 ml IV UD PRN; Protocol PRN Reason: Hypoglycemia Protocol Stop: 08/28/23 14:07 Diphenhydramine HCl (Diphenhydramine Capsule 25 Mg Cap) 25 mg PO Q6H PRN PRN Reason: Allergic Rhinitis/Insomnia Stop: 08/28/23 11:19 Duloxetine HCl (Duloxetine Hcl 60 Mg Cap) 60 mg PO DAILY [facility] Stop: 08/29/23 08:59 Last Admin: 07/30/23 08:39 Dose: 60 mg Epinephrine (Racepinephrine 2.25% Nebu Soln 0.5 Ml Vial) 0.5 ml INH NOW PRN PRN Reason: If stridor present Famotidine (Famotidine 20 Mg Tab) 20 mg PO Q12H PRN PRN Reason: Dyspepsia Stop: 08/28/23 11:19 Ferrous Sulfate (Ferrous Sulfate 325 Mg Tab) 325 mg PO Q2D VOLODYMYR Stop: 08/29/23 08:59 Last Admin: 07/30/23 08:38 Dose: 325 mg Fluticasone Propionate (Fluticasone Propionate Na Spr 16 Gm Btl) 1 sprays NA QAM PRN PRN Reason: allergies Stop: 08/28/23 11:19 Glucagon (Glucagon For Inj 1 Mg Vial) 1 mg SQ UD PRN; Protocol PRN Reason: Hypoglycemia Protocol Stop: 08/28/23 14:07 Glucose (Glucose 10 Tab/Tube) 4 - 8 tab PO UD PRN; Protocol PRN Reason: Hypoglycemia Treatment Stop: 08/28/23 14:07 Glucose (Glucose 40% Gel 15 Gm Tube) 15 - 30 gm PO UD PRN; Protocol PRN Reason: Hypoglycemia Protocol Stop: 08/28/23 14:07 Hydromorphone HCl (Hydromorphone Inj 0.5 Mg/0.5 Ml Syr) 0.5 mg IV Q3H PRN PRN Reason: MODERATE Pain (Scale 4,5,6) & Pre PT Stop: 08/12/23 11:19 Hydromorphone HCl (Hydromorphone Inj 1 Mg/Ml Syringe) 1 mg IV Q3H PRN PRN Reason: SEVERE Pain (Scale 7,8,9,10) Stop: 08/12/23 11:19 Hydroxyzine HCl (Hydroxyzine Hcl 25 Mg Tab) 25 mg PO Q8H PRN PRN Reason: Anxiety Stop: 08/28/23 11:19 Acetaminophen (Ofirmev) 1,000 mg in 100 mls @ 400 mls/hr IV Q8H PRN PRN Reason: Pain Rating 1-3 & Pre PT Stop: 07/30/23 11:20 Dexamethasone 8 mg/ Syringe 2 mls @ 1 mls/min IV NOW PRN PRN Reason: If stridor present Promethazine HCl 12.5 mg/ (Sodium Chloride) 50.5 mls @ 202 mls/hr IV Q6H PRN PRN Reason: Nausea &/or Vomiting Stop: 08/28/23 11:19 Lorazepam 0.5 mg/ Syringe 0.5 mls @ 2 mls/min IV Q8H PRN; Protocol PRN Reason: Sedation/Anxiety Stop: 08/28/23 11:19 Dexamethasone 6 mg/ Syringe 1.5 mls @ 1 mls/min IV DAILY VOLODYMYR Stop: 08/01/23 09:02 Last Admin: 07/30/23 08:30 Dose: 1 mls/min Influenza Virus Vaccine Quadrival (Do Not Administer Flu Vaccine) 1 each N/A PRN PRN PRN Reason: Notification Stop: 08/28/23 11:19 Insulin Aspart (Insulin Aspart Per Unit Charge) 0 units SC ACHS [facility] Stop: 08/28/23 16:29 Last Admin: 07/30/23 08:26 Dose: 4 units Insulin Glargine (Lantus Per Unit Charge) 15 units SC DAILY VOLODYMYR Stop: 08/29/23 08:59 Last Admin: 07/30/23 08:26 Dose: 15 units Levothyroxine Sodium (Levothyroxine Sodium 112 Mcg Tablet) 112 mcg PO DAILYBB [facility] Stop: 08/29/23 06:29 Last Admin: 07/30/23 05:32 Dose: 112 mcg Lorazepam (Lorazepam 0.5 Mg Tab) 0.5 mg PO Q8H PRN PRN Reason: Sedation/Anxiety Stop: 08/28/23 11:19 Magnesium Hydroxide (Magnesium Hydroxide Susp 30 Ml Udc) 30 ml PO Q24H PRN PRN Reason: Constipation Stop: 08/28/23 11:19 Magnesium Oxide (Magnesium Oxide 400 Mg Tab) 400 mg PO QAM [facility] Stop: 08/29/23 08:59 Last Admin: 07/30/23 08:39 Dose: 400 mg Metoclopramide HCl (Metoclopramide Hcl Inj 5 Mg/Ml 2 Ml Vial) 10 mg IV Q6H PRN PRN Reason: Nausea &/or Vomiting Stop: 08/28/23 11:19 Miscellaneous (Carbohydrates For Hypoglycemia ) 15 - 30 gm PO UD PRN PRN Reason: Hypoglycemia Protocol Stop: 08/28/23 14:07 Miscellaneous Information (Pharmacy Glycemic Mgmt Consult) 1 each N/A UD PRN PRN Reason: Consult Stop: 08/28/23 14:07 Naloxone HCl (Naloxone Hcl 0.4 Mg/1 Ml Vial/Carp) 0.1 mg IV Q5M PRN PRN Reason: Oversedation/Resp depression Stop: 08/28/23 11:19 Ondansetron HCl (Ondansetron Inj 2 Mg/Ml 2 Ml Vial) 4 mg IV Q6H PRN PRN Reason: Nausea &/or Vomiting Stop: 08/28/23 11:19 Ondansetron HCl (Ondansetron 4 Mg Od Tab) 4 mg PO Q6H PRN PRN Reason: Nausea Stop: 08/28/23 11:19 Pneumococcal Polyvalent Vaccine (Do Not Administer Pneumococcal Vaccine) 1 each N/A PRN PRN PRN Reason: Notification Stop: 08/28/23 11:19 Polyethylene Glycol (Polyethylene (Miralax) 17 Gm Pack) 17 gm PO Q6 VOLODYMYR Stop: 08/29/23 05:59 Last Admin: 07/30/23 05:32 Dose: 17 gm Senna/Docusate Sodium (Docusate Sodium/Senna 50/8.6mg Tab) 2 tab PO HS VOLODYMYR Stop: 08/28/23 20:59 Last Admin: 07/29/23 20:49 Dose: 2 tab Sodium Biphosphate/Sodium Phosphate (Sod Phosphate/Sod Biphosphate Enema 132 Ml Btl) 132 ml DC ONE PRN PRN Reason: Constipation Stop: 08/28/23 11:19 Tramadol HCl (Tramadol Hcl 50 Mg Tablet) 50 - 100 mg PO Q4H PRN PRN Reason: Moderate-Severe pain & Pre PT Stop: 08/28/23 11:19 Vitamin D (Cholecalciferol 125 Mcg (5,000 Units) Tab) 125 mcg PO QAM VOLODYMYR Stop: 08/29/23 08:59 Last Admin: 07/30/23 08:37 Dose: 125 mcg
--- NOTE | 2023-08-05 19:40 | Coding Query ---
CODING QUERY To promote full compliance with coding requirements relating to patient care, provider participation is requested in all cases of construction field engineer uncertainty. Please assist us with the question(s) below: Coding Question(s): DS-s/p ACDF C5-C7 by Dr. Hoffmann on 07/29/23 Principal Diagnosis Cervical spinal stenosis with radiculopathy Discharge Items Patient Disposition: Home - Self-Care Reason For Visit: Cervical Disc Herniation, Cervical Region Radiculo Discharge Diagnosis: Lumbar spinal stenosis with radiculopathy Discharge should read: Cervical stenosis with radiculopathy Can you please clarify that discharge/principal diagnosis and/or make an amendment to you discharge summary? Physician's Response(s): Thank you Ly Miller Principal Diagnosis: "that condition established after study, to be chiefly responsible for occasioning the admission of the patient to the hospital for care." Co-Existing Principal Diagnosis: "when two or more diagnoses equally meet the criteria for principal diagnosis as determined by the circumstances of admission, diagnostic work up, and/or therapy provided, and the Alphabetic Index, Tabular List, or another coding guideline does not provide sequencing direction, any one of the diagnoses may be sequenced first." "When the physician has documented what appears to be a current diagnosis in the body of the record, but has not included the diagnosis in the final diagnostic statement, the physician should be asked whether the diagnosis should be added." (Source [facility]oding [facility] 2 QTR90. p3-4) JONNA
== END 2023-07-30 11:33 | disposition home or self-care (01) | DRG 472 ==
LOC: ASU 06:05 → 3E 09:31